=== PATIENT | male | born 1960 | race Caucasian/White ===

== ENCOUNTER 2018-12-10 15:54 | Inpatient (IN) | payer MEDICARE, MEDICAID ==
[~2018-12-10] VITALS: Ht 175.3 cm; Wt 88.9 kg
[2018-12-10 19:30] VITALS: BP 139/74
[2018-12-10 20:44] LABS: GLUCOMETER DEV NAME(LOC) 2WR.1; GLUCOSE,POINT OF CARE 90 MG/DL (70-110)
[2018-12-10] MEDS ORDERED: INSULIN LISPRO 100 UNITS/ML SQ PRN (22:00)
[2018-12-10] MEDS ORDERED: DEXTROSE 50%-WATER 25 GM/50 ML SYRINGE IVP PRN ×2 (22:00)
[2018-12-10] MEDS ORDERED: SEVELAMER CARBONATE 800 MG TABLET PO ONE (22:15)
[2018-12-10] MEDS ORDERED: DOCUSATE SODIUM 100 MG CAPSULE PO PRN (22:15)
[2018-12-10] MEDS ORDERED: ACETAMINOPHEN 325 MG TABLET PO PRN (22:15)
[2018-12-10] MEDS ORDERED: SENNA 187 MG TABLET PO PRN (22:15)
[2018-12-10 22:58] LABS: GLUCOMETER DEV NAME(LOC) 2WR.2; GLUCOSE,POINT OF CARE 113 MG/DL (70-110)
[2018-12-11] VITALS: BP 122/57
[2018-12-11 05:43] LABS: GLUCOMETER DEV NAME(LOC) 2WR.1; GLUCOSE,POINT OF CARE 102 MG/DL (70-110)
[2018-12-11] MEDS: SEVELAMER CARBONATE 800 MG TABLET PO SCH ×3 (07:44→17:36)
[2018-12-11] MEDS: CLOPIDOGREL BISULFATE 75 MG TABLET PO SCH (08:55)
[2018-12-11] MEDS: VITAMIN B COMP/VIT C/FOLIC ACID CAPSULE PO SCH (08:55)
[2018-12-11] MEDS: FAMOTIDINE 20 MG TABLET PO SCH (08:55)
[2018-12-11] MEDS: HEPARIN SODIUM,PORCINE 5,000 UNITS/ML VIAL SQ SCH ×2 (08:55→20:41)
[2018-12-11 08:56] VITALS: BP 133/74
[2018-12-11] MEDS ORDERED: ATORVASTATIN CALCIUM 20 MG TABLET PO SCH (09:00)
[2018-12-11] MEDS: ASPIRIN 81 MG CHEWABLE TABLET PO SCH (09:08)
[2018-12-11 09:39] LABS: BASOPHILS % (AUTO) 1.3 % (0.0-2.0); EOSINOPHILS % (AUTO) 5.1 % (1.0-6.0); HEMATOCRIT 38.6 % (41-53); HEMOGLOBIN 12.9 g/dL (13.5-17.5); LYMPHOCYTES # (AUTO) 0.8 K/uL (1.0-4.8); LYMPHOCYTES % (AUTO) 17.1 % (22.0-44.0); MEAN CORPUSCULAR HEMOGLOBIN 31.6 pg (26.0-34.0); MEAN CORPUSCULAR HGB CONC 33.4 G/dL (31.0-37.0); MEAN CORPUSCULAR VOLUME 95 fL (80-100); MONOCYTES # (AUTO) 0.6 K/uL (0.1-1.0); MONOCYTES % (AUTO) 13.3 % (2.0-9.0); NEUTROPHILS % (AUTO) 63.2 % (40.0-70.0); PLATELET COUNT (AUTO) 98 K/uL (150-450); RED BLOOD CELL COUNT(AUTO) 4.07 MIL/uL (4.50-5.90)
[2018-12-11 10:09] LABS: CALCIUM, TOTAL 8.7 mg/dL (8.8-10.5); CREATININE 8.08 mg/dL (0.60-1.30); POTASSIUM 5.6 mmol/L (3.5-5.1)
[2018-12-11 10:15] LABS: ALBUMIN 3.4 g/dL (3.4-5.0); BILIRUBIN,TOTAL 0.5 mg/dL (0.1-1.0); TOTAL PROTEIN, SERUM 6.9 g/dL (6.4-8.2)
[2018-12-11 11:01] LABS: HEMOGLOBIN A1C 6.7 % (4.5-6.2)
[2018-12-11 11:59] LABS: GLUCOMETER DEV NAME(LOC) 2WR.1; GLUCOSE,POINT OF CARE 102 MG/DL (70-110)
[2018-12-11 16:36] VITALS: BP 145/77
[2018-12-11 17:49] LABS: GLUCOMETER DEV NAME(LOC) 2WR.2; GLUCOSE,POINT OF CARE 102 MG/DL (70-110)
[2018-12-11] MEDS: ATORVASTATIN CALCIUM 20 MG TABLET PO SCH (20:41)
[2018-12-11] MEDS: INSULIN LISPRO 100 UNITS/ML SQ PRN (20:47)
[2018-12-11 21:43] LABS: GLUCOMETER DEV NAME(LOC) 2WR.1; GLUCOSE,POINT OF CARE 169 MG/DL (70-110)
[2018-12-11] MEDS: MELATONIN 3 MG TABLET PO PRN (21:44)
[2018-12-11 21:48] VITALS: BP 141/86
[2018-12-12] VITALS: BP 144/84
[2018-12-12 06:39] LABS: GLUCOMETER DEV NAME(LOC) 2WR.1; GLUCOSE,POINT OF CARE 93 MG/DL (70-110)
[2018-12-12 07:09] LABS: CALCIUM, TOTAL 8.3 mg/dL (8.8-10.5); CREATININE 9.81 mg/dL (0.60-1.30); POTASSIUM 5.7 mmol/L (3.5-5.1)
[2018-12-12] MEDS: ASPIRIN 81 MG CHEWABLE TABLET PO SCH (08:02)
[2018-12-12] MEDS: FAMOTIDINE 20 MG TABLET PO SCH (08:02)
[2018-12-12] MEDS: ATORVASTATIN CALCIUM 20 MG TABLET PO SCH (08:03)
[2018-12-12] MEDS: VITAMIN B COMP/VIT C/FOLIC ACID CAPSULE PO SCH (08:03)
[2018-12-12] MEDS: HEPARIN SODIUM,PORCINE 5,000 UNITS/ML VIAL SQ SCH ×2 (08:03→23:41)
[2018-12-12] MEDS: CLOPIDOGREL BISULFATE 75 MG TABLET PO SCH (08:03)
[2018-12-12] MEDS: SEVELAMER CARBONATE 800 MG TABLET PO SCH ×3 (08:04→17:15)
[2018-12-12 09:14] VITALS: BP 144/87
[2018-12-12 12:29] LABS: GLUCOMETER DEV NAME(LOC) 2WR.2; GLUCOSE,POINT OF CARE 133 MG/DL (70-110)
[2018-12-12 16:05] VITALS: BP 148/80
[2018-12-12 17:18] VITALS: BP 147/81
[2018-12-12 17:44] LABS: GLUCOMETER DEV NAME(LOC) 2WR.1; GLUCOSE,POINT OF CARE 110 MG/DL (70-110)
[2018-12-12 23:20] VITALS: BP 151/80
[2018-12-12 23:33] LABS: GLUCOMETER DEV NAME(LOC) 2WR.2; GLUCOSE,POINT OF CARE 64 MG/DL (70-110)
[2018-12-13] VITALS: BP 151/90
[2018-12-13 00:18] LABS: GLUCOMETER DEV NAME(LOC) 2WR.2; GLUCOSE,POINT OF CARE 113 MG/DL (70-110)
[2018-12-13 06:24] LABS: GLUCOMETER DEV NAME(LOC) 2WR.2; GLUCOSE,POINT OF CARE 98 MG/DL (70-110)
[2018-12-13 08:00] VITALS: BP 140/84
[2018-12-13] MEDS: ASPIRIN 81 MG CHEWABLE TABLET PO SCH (08:07)
[2018-12-13] MEDS: HEPARIN SODIUM,PORCINE 5,000 UNITS/ML VIAL SQ SCH ×2 (08:07→21:31)
[2018-12-13] MEDS: ATORVASTATIN CALCIUM 20 MG TABLET PO SCH (08:07)
[2018-12-13] MEDS: FAMOTIDINE 20 MG TABLET PO SCH (08:07)
[2018-12-13] MEDS: SEVELAMER CARBONATE 800 MG TABLET PO SCH ×3 (08:07→17:48)
[2018-12-13] MEDS: CLOPIDOGREL BISULFATE 75 MG TABLET PO SCH (08:07)
[2018-12-13] MEDS: VITAMIN B COMP/VIT C/FOLIC ACID CAPSULE PO SCH (08:08)
[2018-12-13 13:18] LABS: GLUCOMETER DEV NAME(LOC) 2WR.2; GLUCOSE,POINT OF CARE 95 MG/DL (70-110)
[2018-12-13 15:34] VITALS: BP 144/77
[2018-12-13 17:29] LABS: GLUCOMETER DEV NAME(LOC) 2WR.1; GLUCOSE,POINT OF CARE 111 MG/DL (70-110)
[2018-12-13 22:13] LABS: GLUCOMETER DEV NAME(LOC) 2WR.2; GLUCOSE,POINT OF CARE 127 MG/DL (70-110)
[2018-12-14] VITALS: BP 146/76
[2018-12-14] MEDS: MELATONIN 3 MG TABLET PO PRN ×2 (00:20→21:23)
[2018-12-14 06:29] LABS: GLUCOMETER DEV NAME(LOC) 2WR.2; GLUCOSE,POINT OF CARE 99 MG/DL (70-110)
[2018-12-14 07:32] VITALS: BP 151/84
[2018-12-14] MEDS: SEVELAMER CARBONATE 800 MG TABLET PO SCH ×3 (08:18→19:40)
[2018-12-14] MEDS: VITAMIN B COMP/VIT C/FOLIC ACID CAPSULE PO SCH (08:19)
[2018-12-14] MEDS: ASPIRIN 81 MG CHEWABLE TABLET PO SCH (08:19)
[2018-12-14] MEDS: SitaGLIPtin PHOSPHATE 25 MG TABLET PO SCH (08:19)
[2018-12-14] MEDS: FAMOTIDINE 20 MG TABLET PO SCH (08:19)
[2018-12-14] MEDS: CLOPIDOGREL BISULFATE 75 MG TABLET PO SCH (08:19)
[2018-12-14] MEDS: ATORVASTATIN CALCIUM 20 MG TABLET PO SCH (08:20)
[2018-12-14] MEDS: HEPARIN SODIUM,PORCINE 5,000 UNITS/ML VIAL SQ SCH ×2 (08:20→21:24)
[2018-12-14] MEDS: INSULIN LISPRO 100 UNITS/ML SQ PRN (12:15)
[2018-12-14] MEDS ORDERED: SODIUM CHLORIDE 0.9% 1,000 ML IV ONE (13:36)
[2018-12-14 15:29] LABS: GLUCOMETER DEV NAME(LOC) 2WR.2; GLUCOSE,POINT OF CARE 146 MG/DL (70-110)
[2018-12-14 19:58] LABS: GLUCOMETER DEV NAME(LOC) 2WR.2; GLUCOSE,POINT OF CARE 70 MG/DL (70-110)
[2018-12-14 20:00] VITALS: BP 137/67
[2018-12-14 21:58] LABS: GLUCOMETER DEV NAME(LOC) 2WR.1; GLUCOSE,POINT OF CARE 103 MG/DL (70-110)
[2018-12-15] VITALS: BP 119/59
[2018-12-15 05:44] LABS: GLUCOMETER DEV NAME(LOC) 2WR.2; GLUCOSE,POINT OF CARE 86 MG/DL (70-110)
[2018-12-15 06:25] LABS: CALCIUM, TOTAL 8.5 mg/dL (8.8-10.5); CREATININE 7.02 mg/dL (0.60-1.30); POTASSIUM 4.4 mmol/L (3.5-5.1)
[2018-12-15] MEDS: SEVELAMER CARBONATE 800 MG TABLET PO SCH ×3 (07:35→17:11)
[2018-12-15 08:00] VITALS: BP 146/79
[2018-12-15] MEDS: FAMOTIDINE 20 MG TABLET PO SCH (08:05)
[2018-12-15] MEDS: SitaGLIPtin PHOSPHATE 25 MG TABLET PO SCH (08:05)
[2018-12-15] MEDS: HEPARIN SODIUM,PORCINE 5,000 UNITS/ML VIAL SQ SCH ×2 (08:05→21:56)
[2018-12-15] MEDS: ATORVASTATIN CALCIUM 20 MG TABLET PO SCH (08:05)
[2018-12-15] MEDS: CLOPIDOGREL BISULFATE 75 MG TABLET PO SCH (08:05)
[2018-12-15] MEDS: ASPIRIN 81 MG CHEWABLE TABLET PO SCH (08:05)
[2018-12-15] MEDS: VITAMIN B COMP/VIT C/FOLIC ACID CAPSULE PO SCH (08:06)
[2018-12-15 16:00] VITALS: BP 146/82
[2018-12-15 18:54] LABS: GLUCOMETER DEV NAME(LOC) 2WR.2; GLUCOSE,POINT OF CARE 128 MG/DL (70-110)
[2018-12-15] MEDS: MELATONIN 3 MG TABLET PO PRN (22:06)
[2018-12-16 02:14] VITALS: BP 130/64
[2018-12-16 05:54] LABS: GLUCOMETER DEV NAME(LOC) 2WR.2; GLUCOSE,POINT OF CARE 114 MG/DL (70-110)
[2018-12-16 07:11] VITALS: BP 125/74
[2018-12-16] MEDS: SitaGLIPtin PHOSPHATE 25 MG TABLET PO SCH (08:25)
[2018-12-16] MEDS: HEPARIN SODIUM,PORCINE 5,000 UNITS/ML VIAL SQ SCH ×2 (08:25→20:49)
[2018-12-16] MEDS: SEVELAMER CARBONATE 800 MG TABLET PO SCH ×3 (08:25→17:53)
[2018-12-16] MEDS: CLOPIDOGREL BISULFATE 75 MG TABLET PO SCH (08:26)
[2018-12-16] MEDS: VITAMIN B COMP/VIT C/FOLIC ACID CAPSULE PO SCH (08:26)
[2018-12-16] MEDS: ATORVASTATIN CALCIUM 20 MG TABLET PO SCH (08:26)
[2018-12-16] MEDS: FAMOTIDINE 20 MG TABLET PO SCH (08:26)
[2018-12-16] MEDS: ASPIRIN 81 MG CHEWABLE TABLET PO SCH (08:26)
[2018-12-16] MEDS ORDERED: SODIUM CHLORIDE 0.9% 1,000 ML IV ONE (13:19)
[2018-12-16] MEDS ORDERED: LISI-662 PO (13:52)
[2018-12-16] MEDS ORDERED: SEVEC800 PO (14:08)
[2018-12-16] MEDS ORDERED: CLOP75TA3 PO (14:08)
[2018-12-16] MEDS ORDERED: ASPI81TA87 PO (14:08)
[2018-12-16] MEDS ORDERED: FAMO20 PO (14:08)
[2018-12-16] MEDS ORDERED: SITA25 PO (14:08)
[2018-12-16] MEDS ORDERED: MELA3TAB66 PO (14:08)
[2018-12-16] MEDS ORDERED: ATOR20TA86 PO (14:08)
[2018-12-16] MEDS ORDERED: FOLI1CAP2 PO (14:08)
[2018-12-16 15:56] VITALS: BP 125/74
[2018-12-16 17:50] VITALS: BP 144/80
[2018-12-16 18:04] LABS: GLUCOMETER DEV NAME(LOC) 2WR.2; GLUCOSE,POINT OF CARE 84 MG/DL (70-110)
[2018-12-16 20:48] VITALS: BP 131/77
[2018-12-16] MEDS: MELATONIN 3 MG TABLET PO PRN (20:49)
[2018-12-17 05:44] VITALS: BP 131/68
[2018-12-17 05:49] LABS: GLUCOMETER DEV NAME(LOC) 2WR.2; GLUCOSE,POINT OF CARE 108 MG/DL (70-110)
[2018-12-17 08:10] VITALS: BP_SYST 117; BP_SYST 143; BP_DIAS 64; BP_DIAS 92
[2018-12-17] MEDS: SitaGLIPtin PHOSPHATE 25 MG TABLET PO SCH (08:42)
[2018-12-17] MEDS: ATORVASTATIN CALCIUM 20 MG TABLET PO SCH (08:42)
[2018-12-17] MEDS: ASPIRIN 81 MG CHEWABLE TABLET PO SCH (08:42)
[2018-12-17] MEDS: SEVELAMER CARBONATE 800 MG TABLET PO SCH ×2 (08:42→12:22)
[2018-12-17] MEDS: FAMOTIDINE 20 MG TABLET PO SCH (08:43)
[2018-12-17] MEDS: CLOPIDOGREL BISULFATE 75 MG TABLET PO SCH (08:43)
[2018-12-17] MEDS: HEPARIN SODIUM,PORCINE 5,000 UNITS/ML VIAL SQ SCH (08:43)
[2018-12-17] MEDS: VITAMIN B COMP/VIT C/FOLIC ACID CAPSULE PO SCH (08:44)
[2018-12-17] MEDS ORDERED: LISINOPRIL 20 MG TABLET PO SCH (09:00)
== END 2018-12-17 15:40 | disposition home or self-care (01) | DRG 64 ==
LOC: 2WR 17:45
DX: I63.9 Cerebral infarction, unspecified (principal); J69.0 Pneumonitis due to inhalation of food and vomit; N18.6 End stage renal disease; I69.351 Hemiplegia and hemiparesis following cerebral infarction affecting right dominant side; I13.2 Hypertensive heart and chronic kidney disease with heart failure and with stage 5 chronic kidney disease, or end stage renal disease; I42.9 Cardiomyopathy, unspecified; I50.22 Chronic systolic (congestive) heart failure; E11.22 Type 2 diabetes mellitus with diabetic chronic kidney disease; E11.51 Type 2 diabetes mellitus with diabetic peripheral angiopathy without gangrene; I87.2 Venous insufficiency (chronic) (peripheral); E87.5 Hyperkalemia; I25.2 Old myocardial infarction; Z79.84 Long term (current) use of oral hypoglycemic drugs; Z89.421 Acquired absence of other right toe(s); Z99.2 Dependence on renal dialysis; Z82.49 Family history of ischemic heart disease and other diseases of the circulatory system; Z83.3 Family history of diabetes mellitus
CPT/HCPCS: 83036; 87081; 87340; 92507; 92523; 97110; 97112; 97116; 97162; 97166; 97530; 97535; 99366; J1644; J7030